=== PATIENT | female | born 1940 | race Caucasian/White ===

== ENCOUNTER 2016-11-28 22:04 | Outpatient (CLI) | payer OTHER ==
[2015-08-22 11:26] VITALS: BP 157/64
[2016-11-28 22:34] LABS: BASOPHILS % 0.5 (0.0-1.5); EOSINOPHILS % 2.5 % (0.0-6.8); MEAN CORPUSCULAR HEMOGLOBIN 32.1 pg (28.0-34.0); MEAN CORPUSCULAR VOLUME 98.1 fl (80.0-100.0); MONOCYTES % 7.6 % (0.0-11.0); NEUTROPHILS # 3.3 # k/uL (1.4-7.7)
[2016-11-28 22:48] LABS: eGFR (African) > 60; eGFR (Non-African) > 60
[2016-11-29 19:51] LABS: LIPASE 31 U/L (13-60)
== END 2016-11-28 22:20 ==
LOC: LAB 22:04
PROVIDERS: ATTEND Emergency Medicine
DX: R10.11 Right upper quadrant pain (principal); R11.0 Nausea
CPT/HCPCS: 80053; 82150; 83690; 85025

== ENCOUNTER 2016-11-29 08:06 | Outpatient (CLI) | payer OTHER ==
[2015-08-22 11:26] VITALS: BP 157/64
--- NOTE | 2016-11-29 14:10 | Diagnostic Imaging Report ---
[facility] [address] [facility].[address] [id number] Report Submission Date: Nov 29, 2016 12:31:53 PM CDT Patient Study Name: LEEROY SHOEMAKER V Date: Nov 29, 2016 8:15:34 AM CDT Modality Type: US Gender: F Description: US ABD LIMITED : 40 Institution: [facility] Physician BRUCE MORENO (SECURITIES ATTORNEY) - ER EXAMINATION: Limited abdominal sonogram. HISTORY: Right upper quadrant pain. FINDINGS: The liver is normal in echogenicity and echotexture without focal lesion grossly identified. The gallbladder is normal without distention wall thickening or cholelithiasis. There is no evidence of biliary dilation. The common bile duct measures up to 4.3 mm in diameter. This portion the pancreas is normal. The right kidney is free of hydronephrosis. The proximal IVC is normal. IMPRESSION: Normal abdominal sonogram. Electronically signed on Nov 29, 2016 12:31:53 PM CDT by: Angel PETERSON
== END 2016-11-29 09:13 ==
LOC: RAD 08:06
PROVIDERS: ATTEND Emergency Medicine
DX: R10.11 Right upper quadrant pain (principal)
CPT/HCPCS: 76705

== ENCOUNTER 2016-12-05 17:42 | Outpatient (CLI) | payer OTHER ==
[2015-08-22 11:26] VITALS: BP 157/64
== END 2016-12-05 17:44 ==
LOC: LAB 17:42
PROVIDERS: ATTEND Family Medicine
DX: R07.9 Chest pain, unspecified (principal)
CPT/HCPCS: 82550; 82553; 84484

== ENCOUNTER 2017-01-01 14:45 | Outpatient (CLI) | payer OTHER ==
[2015-08-22 11:26] VITALS: BP 157/64
== END 2017-01-01 14:46 ==
LOC: LAB 14:45
PROVIDERS: ATTEND Internal Medicine
DX: E03.9 Hypothyroidism, unspecified (principal)
CPT/HCPCS: 36415; 84439; 84443

== ENCOUNTER 2017-08-22 15:10 | Outpatient (CLI) | payer OTHER ==
[2015-08-22 11:26] VITALS: BP 157/64
--- NOTE | 2017-08-23 05:49 | Diagnostic Imaging Report ---
MARY CALDWELL [facility] [address] [facility].[address] [address] Report Submission Date: Aug 22, 2017 7:18:52 PM CDT Patient Study Name: LEEROY SHOEMAKER V Date: Aug 22, 2017 3:41:25 PM CDT Modality Type: DX Gender: F Description: CHEST : 40 Institution: [facility] Physician: MARY CALDWELL Chest, 2 view History: COUGH, FEVER, WEAKNESS SINCE 08/17/17 Findings: The heart size is normal. The lungs are clear hyperinflated.. There is no pleural effusion or pneumothorax identified. The osseous structures are normal. Impression: 1. No acute pulmonary disease. 2. Lung hyperinflation. Electronically signed on Aug 22, 2017 7:18:52 PM CDT by: Angel PETERSON
== END 2017-08-22 15:30 ==
LOC: LAB 15:10
PROVIDERS: ATTEND Internal Medicine
DX: J06.9 Acute upper respiratory infection, unspecified (principal)
CPT/HCPCS: 71046; 87400

== ENCOUNTER 2017-10-15 09:19 | Emergency (ER) | payer OTHER ==
--- NOTE | 2017-10-15 09:59 | ED Physician Documentation ---
General Adult - HISTORIAN Historian: patient - HPI Stated Complaint: Facial Pain Chief Complaint: General Adult (trigiminal neuralgia) Additional Information: Was diagnosed with trigiminal neuralgia 6 months ago on the right. Last evening started to have some increase discomfort with it. Has been on gabapentin with some relief. Now is havinga lot more stinging and burning pain. Sensitive to touch. Timing: still present - ROS CONST: no problems. denies: fever, chills - PAST HX Past History: other (ahritis) Surgeries/Procedures: other (carpal tunnel, release of ulnar nerve intrapment, bilat TKR) Immunizations: referred to PCP Allergies/Adverse Reactions: Allergies Allergy/AdvReac Type Severity Reaction Status Date / Time acetaminophen [From Lortab] AdvReac Wheezing Verified 10/15/17 09:50 codeine AdvReac Wheezing Verified 10/15/17 09:50 doxycycline AdvReac Wheezing Verified 10/15/17 09:50 hydrocodone bitartrate AdvReac Wheezing Verified 10/15/17 09:50 [From Lortab] meperidine HCl [From Demerol] AdvReac Wheezing Verified 10/15/17 09:50 morphine AdvReac Wheezing Verified 10/15/17 09:50 Penicillins AdvReac Wheezing Verified 10/15/17 09:50 propoxyphene HCl AdvReac Wheezing Verified 10/15/17 09:50 [From Darvon] Sulfa (Sulfonamide AdvReac Wheezing Verified 10/15/17 09:50 Antibiotics) Tetracyclines AdvReac Wheezing Verified 10/15/17 09:50 Home Medications: Ambulatory Orders Medication Instructions Recorded Cholecalciferol [Vitamin D-3] 1 tab PO DAILY 10/19/13 Omeprazole [Prilosec] 20 mg PO 0700 10/19/13 Carbamazepine [Carbamazepine ER] 100 mg PO BID #30 cpmp.12hr 10/15/17 Gabapentin [Gabapentin] 300 mg PO BID 10/15/17 Thiamine HCl [Vitamin B-1] 500 mg PO D 10/15/17 Tramadol HCl [Ultram] 50 mg PO Q6 PRN #30 tablet 10/15/17 - SOCIAL HX Smoking History: non-smoker Alcohol Use: none Drug Use: none - FAMILY HX Family History: No - VITAL SIGNS Vital Signs: Vital Signs Temp Pulse Resp BP Pulse Ox 68 20 171/79 97 10/15/17 09:19 10/15/17 09:19 10/15/17 09:19 10/15/17 09:19 - REVIEWED ASSESSMENTS Nursing Assessment Reviewed: Yes Vitals Reviewed: Yes General Adult Physical Exam - PHYSICAL EXAM GENERAL APPEARANCE: moderate distress EENT: eye inspection normal (mildly conjuntivalinjection), ENT inspection normal , pharynx normal NECK: normal inspection, thyroid normal, supple RESPIRATORY: no resp distress, chest non-tender, breath sounds normal. No: wheezes, rales, rhonchi CVS: reg rate & rhythm, heart sounds normal, equal pulses, no murmur, no gallop SKIN: other (sensitive and tenderness to touch over right nares and periorbital area. Mild tenderness tot he right forehead area. ) NEURO: oriented X3, CN's nml as tested, motor nml, sensation nml (stinging burning pain to trigeminal area), mood/affect nml, cognition normal Discharge Clincal Impression: Trigeminal neuralgia Prescriptions: Carbamazepine [Carbamazepine ER] 100 mg PO BID #30 cpmp.12hr Tramadol HCl [Ultram] 50 mg PO Q6 PRN #30 tablet PRN Reason: Pain Referrals: Darshan Simon MD [Primary Care Provider] - 2 Days Additional Instructions: Take Tregretol as directed. Make an appointment with primary care provider for further treatment options and work-up. You may try tramadol for this pain but it will usally not work real well. Take it with food. Condition: Stable Disposition: 01 HOME, SELF-CARE Decision to Admit: NO Date of Decison to Admit: 10/15/17 Decision Time: 10:16
[2017-10-15 10:42] LABS: BASOPHILS % 0.5 (0.0-1.5); EOSINOPHILS % 2.4 % (0.0-6.8); MEAN CORPUSCULAR HEMOGLOBIN 31.9 pg (28.0-34.0); MEAN CORPUSCULAR VOLUME 99.3 fl (80.0-100.0); MONOCYTES % 6.4 % (0.0-11.0); NEUTROPHILS # 2.7 # k/uL (1.4-7.7)
[2017-10-15 11:02] VITALS: BP 155/70
== END 2017-10-15 10:35 | disposition home or self-care (01) ==
LOC: ED 09:19
DX: G50.0 Trigeminal neuralgia (principal)
CPT/HCPCS: 85025; 99283

== ENCOUNTER 2018-02-27 08:22 | Outpatient (CLI) | payer OTHER ==
[2018-02-27 09:57] LABS: eGFR (Non-African) > 60
[2018-02-27 16:57] LABS: BASO % 0.6 % (0.0-1.5); EOS % 3.5 % (0.0-6.8); LYMPH ABS # 1.23 thou/uL (0.60-4.00); MCV 95.9 fL (80.0-100.0); MONOCYTE % 6.9 % (0.0-11.0); MONOCYTE ABS # 0.27 thou/uL (0.00-0.90); PLATELET COUNT 160 thou/uL (130-400)
== END 2018-02-27 08:23 ==
LOC: LAB 08:22
PROVIDERS: ATTEND Internal Medicine
DX: Z00.00 Encounter for general adult medical examination without abnormal findings (principal); E78.5 Hyperlipidemia, unspecified; R53.83 Other fatigue
CPT/HCPCS: 80053; 80061; 84100; 84439; 84443; 84481; 85025

== ENCOUNTER 2018-05-06 14:44 | Outpatient (CLI) | payer OTHER | END 2018-05-06 14:45 | LOC: LAB 14:44 | PROVIDERS: ATTEND Internal Medicine | DX: E03.9 Hypothyroidism, unspecified (principal); E78.5 Hyperlipidemia, unspecified | CPT/HCPCS: 36415; 84439; 84443; 84481 ==

== ENCOUNTER 2018-07-16 15:00 | Outpatient (CLI) | payer OTHER | END 2018-07-16 15:03 | LOC: LABRHC 15:00 | PROVIDERS: ATTEND Nurse Practitioner Family | DX: L82.0 Inflamed seborrheic keratosis (principal) ==

== ENCOUNTER 2018-09-16 15:26 | Outpatient (CLI) | payer OTHER ==
[2018-09-16 16:18] LABS: BASOPHILS % 0.6 % (0.0-1.5); EOSINOPHILS % 2.6 % (0.0-6.8); MEAN CORPUSCULAR HEMOGLOBIN 30.8 pg (28.0-34.0); MONOCYTES % 8.5 % (0.0-11.0); NEUTROPHILS # 3.4 # k/uL (1.4-7.7)
[2018-09-16 16:20] LABS: eGFR (Non-African) > 60
== END 2018-09-16 15:31 | disposition home or self-care (01) ==
LOC: LAB 15:26
PROVIDERS: ATTEND Nurse Practitioner Family
DX: R53.83 Other fatigue (principal); R42 Dizziness and giddiness; M79.18 Myalgia, other site
CPT/HCPCS: 36415; 80053; 82306; 84439; 84443; 85025

== ENCOUNTER 2019-03-09 16:16 | Outpatient (CLI) | payer OTHER ==
[2019-03-09] MEDS ORDERED: ONDANSETRON HCL/PF 4 MG/ 2ML VIAL ONE (16:24)
[2019-03-09] MEDS ORDERED: 0.9 % SODIUM CHLORIDE 1,000 ML IV ONE (16:24)
== END 2019-03-09 17:16 ==
LOC: INF 16:16
PROVIDERS: ATTEND Nurse Practitioner Family
DX: R11.2 Nausea with vomiting, unspecified (principal)
CPT/HCPCS: J2405; J7030; S1016

== ENCOUNTER 2019-04-10 09:04 | Outpatient (CLI) | payer OTHER ==
[2019-04-10 09:25] LABS: BASOPHILS % 0.3 % (0.0-1.5); NEUTROPHILS # 2.7 # k/uL (1.4-7.7)
[2019-04-10 10:23] LABS: HDL 50 mg/dL (>40); eGFR (Non-African) > 60
== END 2019-04-10 09:09 ==
LOC: LAB 09:04
PROVIDERS: ATTEND Internal Medicine
DX: I10 Essential (primary) hypertension (principal); K20.9 Esophagitis, unspecified; E78.5 Hyperlipidemia, unspecified; E03.9 Hypothyroidism, unspecified
CPT/HCPCS: 36415; 80053; 80061; 82306; 84439; 84443; 85025

== ENCOUNTER 2019-05-11 08:25 | Outpatient (CLI) | payer OTHER ==
[2019-05-11 09:42] LABS: TSH 1.02 mIU/l (0.465-4.685)
== END 2019-05-11 08:30 ==
LOC: LAB 08:25
PROVIDERS: ATTEND Internal Medicine
DX: E03.9 Hypothyroidism, unspecified (principal)
CPT/HCPCS: 36415; 84439; 84443